=== PATIENT | female | born 1985 | race Caucasian/White ===

== ENCOUNTER 2022-07-27 14:28 | Emergency (ER) | payer OTHER ==
[~2022-07-27] VITALS: Ht 152.4 cm; Wt 70.3 kg
[2022-07-27] MEDS ORDERED: ZYVOX 600 MG TAB PO SCH (22:30)
[2022-07-27] MEDS ORDERED: LINE600T14 PO (23:14)
[2022-07-27] MEDS ORDERED: KETOROLAC 30MG VIAL (30MG/ML) ONE (23:21)
[2022-07-27 23:24] VITALS: BP 124/72
[2022-07-27] MEDS ORDERED: ACETAMINOPHEN 500 MG TABLET ONE (23:26)
[2022-07-27] MEDS ORDERED: KETOROLAC 30MG VIAL (30MG/ML) IM ONE (23:30)
== END 2022-07-27 23:34 | disposition home or self-care (01) ==
LOC: EDH 14:28
DX: R21 Rash and other nonspecific skin eruption (principal); B95.62 Methicillin resistant Staphylococcus aureus infection as the cause of diseases classified elsewhere; Z88.6 Allergy status to analgesic agent; Z88.8 Allergy status to other drugs, medicaments and biological substances
CPT/HCPCS: 99283; 87070; 87076; 87077; 87186; 96372; J1885